=== PATIENT | female | born 1970 | race Two or more races ===

== ENCOUNTER 2021-03-06 16:44 | Emergency (ER) | payer SELFPAY ==
[~2021-03-06] VITALS: Ht 165.1 cm; Wt 77.1 kg
[2021-03-06 17:22] VITALS: BP 151/112
== END 2021-03-06 22:26 | disposition left against medical advice (07) ==
LOC: ER 16:44 → EDBD 16:44 → ER 22:26
DX: M79.605 Pain in left leg (principal); Z53.21 Procedure and treatment not carried out due to patient leaving prior to being seen by health care provider